=== PATIENT | female | born 1940 ===

== ENCOUNTER 2024-04-09 15:51 | Inpatient (IN) | payer MEDICARE, OTHER, SELFPAY ==
[2024-04-08 15:09] VITALS: BP 153/58
--- NOTE | 2024-04-08 17:00 | ED.GENMED ---
History of Present Illness
General
Chief Complaint: Cough
Time Seen by Provider: 04/08/24 17:00
History of Present Illness
History of Present Illness:
TIME OF INITIAL ENCOUNTER: 5 PM
HPI: I spoke to the daughter for the history. The patient was diagnosed with the flu about a week ago. She was placed on Tamiflu and also was on doxycycline. The doxycycline 'made her sick' and she only had a couple days worth. She had a
persistent cough and an outpatient x-ray at [facility] shows 'extensive multifocal pneumonia' and was sent here for further evaluation. Patient speaks Welsh.
EXAM:
GENERAL: Well appearing in no distress however she appears to be somewhat uncomfortable when she coughs
HEENT: Moist oral mucosa
CARDIOVASCULAR: No murmurs, normal heart rate, regular rhythm, No chest wall tenderness
PULMONARY: Minimal if any respiratory distress, somewhat decreased with faint rales at the bases
ABDOMEN: Soft with no peritoneal signs, no tenderness
NEUROLOGIC: Excellent strength all extremities, no coordination deficits
PSYCHIATRIC: Appropriate mental status, normal insight and judgement, communicating with family without difficulty
EXTREMITIES: Nontender, no edema, moves all extremities equally
SKIN: No rash, no lesions
NUMBER AND COMPLEXITY OF PROBLEMS ADDRESSED AT THE ENCOUNTER
� Chronic conditions affecting care: History of A-fib on Xarelto, PE, high blood pressure, diabetes
� Acute Exacerbation and/or Progression of Chronic Illness: This is an acute problem
� Differential Diagnosis includes: Viral pneumonia, bacterial pneumonia, viral syndrome, nonspecific cough, doubt PE as patient denies any significant shortness of breath and is already on Xarelto
AMOUNT AND/OR COMPLEXITY OF DATA TO BE REVIEWED AND ANALYZED
� I performed an independent evaluation of and my interpretation is:
EKG: A paced 60, IVCD
CT:
X-rays: I personally reviewed chest x-ray which does suggest right-sided opacities greater than left
Laboratory Studies: White count 3.6, hemoglobin 10.2, chemistries relatively unremarkable with exception of minimal transaminase elevation, troponin 0.012
Other:
� Review of other/old records: I reviewed the notes on the patient's daughters phone which indicates that yesterday's chest x-ray at [facility] showed 'extensive of bilateral pneumonia'
� Clinical information was obtained by an independent historian: I spoke to the daughter at bedside for history
� Prescriptions/Medications Considered but not given:
� Further testing considered but not performed:
RISK OF COMPLICATIONS AND/OR MORBIDITY OR MORTALITY OF PATIENT MANAGEMENT
� Social determinants of health affecting care: Lives at home
� Discussion with other providers: Hospitalist, Dr. Hadley, at 6:21 PM for admission
� Escalation of care including admission/observation vs risk of discharge considered: The patient appears comfortable and we talked about outpatient management however the daughter is concerned because she has already been on
doxycycline and azithromycin and chest x-ray as outpatient shows extensive pneumonia. Daughter tells me the primary wanted patient to be admitted for IV antibiotics. Will start Rocephin and continue azithromycin.
ANY OTHER UPDATES:
Past History
Past History
ED Past Medical History: Other (Paroxysmal atrial fib aortic stenosis hypertension diabetes)
Social History
Tobacco: Non-smoker
Alcohol: None
Family History
Family History: Negative Diabetes, Hypertension or CAD
Phy Exam
Physical Exam
Physical Exam:
See HPI
Course
Orders/Labs/Results
Orders:
Orders
04/08/24 15:13
EKG [Electrocardiogram (*1)] Urgent
Reason for Study: Chest Pain
04/08/24 15:14
EKG- Treatment ONCE
04/08/24 17:14
CR Chest - 2 Views Urgent
Comment:
Reason For Exam: flu 1wk ; cough; multifocal pneumonia on CXR Kishore
04/08/24 17:28
Complete Blood Count/With Diff Urgent
Comprehensive Metabolic Panel Urgent
Troponin I Urgent
04/08/24 17:33
Lactic Acid Q4H
Comment: CANCEL 2nd LACTIC ACID IF 1st LACTIC ACID IS LESS THAN 2
Blood Culture Q30M
AUDREY Source: Blood/Venous
Specimen Description:
04/08/24 17:43
Blood Culture Q30M
AUDREY Source: Blood/Venous
Specimen Description:
04/08/24 18:21
Azithromycin 500 mg/250 ml [Zithromax Infusion] 500 mg in 250 ml IV NOW
CefTRIAXone [Rocephin] 1,000 mg IV NOW STA
Abnormal Lab Results
04/08/24
17:28
WBC 3.6 L 10^3/uL
(4.8-10.8)
RBC 3.72 L 10^6/uL
(4.20-5.40)
Hgb 10.2 L g/dL
(12.0-16.0)
Hct 31.6 L %
(37.0-47.0)
MCHC 32.3 L g/dL
(33.0-37.0)
Absolute Lymphs (auto) 0.8 L 10^3/uL
(1.2-3.4)
BUN 26 H mg/dl
(7-17)
Glucose 129 H mg/dl
(70-99)
AST 47 H U/L
(14-36)
ALT 98 H U/L
(0-35)
04/08/24 17:28
04/08/24 17:28
Vital Signs
Initial and Last Documented VS:
Initial Vital Signs
Temp Pulse Resp BP Pulse Ox
36.6 C 62 16 153/58 97
04/08/24 15:09 04/08/24 15:09 04/08/24 15:09 04/08/24 15:09 04/08/24 15:09
Last Documented Vital Signs
Temp Pulse Resp BP Pulse Ox
36.6 C 62 16 131/57 95
04/08/24 15:09 04/08/24 18:00 04/08/24 15:09 04/08/24 17:30 04/08/24 17:45
*Critical Care Note
Total Time (30-74mins, 75-104mins- exclusive of procedures): Not Applicable
ED Attending Note
-
Portions of this chart may have been created with voice recognition software.� Occasional wrong word or��sound alike� substitutions may have occurred due to the inherent limitations of voice recognition software.
Discharge Plan
Departure
Patient Disposition: Admit
Date of Disposition: 04/08/24
Time of Disposition: 18:20
Presentation/result/management discussed w/ accepting MD/DO: Hospitalist
Discharge Problem:
Pneumonia
Prescriptions:
No Action
tizanidine 2 MG tablet
2 mg PO TID
diltiazem HCl 180 MG capsule,extended release 24hr
180 mg PO DAILY
folic acid 1 MG tablet
1 mg PO DAILY
rosuvastatin 10 MG tablet
10 mg PO QPM
sitagliptin phosphate [Januvia] 100 MG tablet
100 mg PO DAILY
dexlansoprazole [Kapidex] 60 MG capsule,biphase delayed releas
60 mg PO DAILY
rivaroxaban [Xarelto] 20 MG tablet
20 mg PO QPM
linaclotide [Linzess] 290 MCG capsule
290 mcg PO DAILY
amiodarone [Pacerone] 200 MG tablet
200 mg PO BID Qty: 60 1RF
Rx Instructions:
200 mg bid for 14 days and 200 gm daily
Referrals:
Matty Chavez MD [Family Provider] -
Interventions
Interventions:
*Risk Screen - Suicide Last Done: 04/08/24 15:09
*General Assessment Last Done: 04/08/24 17:46
*Neglect/Abuse Screening Last Done: 04/08/24 15:09
*ED COVID-19 Vaccine History Last Done: 04/08/24 17:46
ED- Pulmonary Assessment Last Done: 04/08/24 17:46
Discharge Date and Time
Print Language: SINGAPOREAN
[2024-04-08 17:30] VITALS: BP 131/57
[2024-04-08 17:52] LABS: Lactic Acid 0.9 mmol/L (0.7-2.0)
[2024-04-08 17:55] LABS: ALT (SGPT) 98 U/L (0-35); AST (SGOT) 47 U/L (14-36); Albumin 3.9 g/dl (3.5-5.0); Alkaline Phosphatase 79 U/L (38-126); Blood Urea Nitrogen 26 mg/dl (7-17); Calcium 9.1 mg/dl (8.4-10.2); Carbon Dioxide 27 mmol/L (22-30); Chloride 102 mmol/L (98-107); Glucose 129 mg/dl (70-99); Potassium 4.9 mmol/L (3.5-5.1); Sodium 137 mmol/L (135-145); Total Bilirubin 0.5 mg/dl (0.2-1.3); Total Protein 6.4 g/dl (6.3-8.2)
[2024-04-08 17:56] LABS: Hematocrit 31.6 % (37.0-47.0); Hemoglobin 10.2 g/dL (12.0-16.0); Mean Corp Hgb Conc. 32.3 g/dL (33.0-37.0); Mean Corpuscular Hgb 27.4 pg (27.0-31.0); Mean Corpuscular Volume 84.9 fL (81.0-99.0); Mean Platelet Volume 9.4 fL (7.4-10.4); Platelet Count 279 10^3/uL (130-400); Red Blood Cell Count 3.72 10^6/uL (4.20-5.40); Red Cell Dist. Width 14.2 % (11.5-14.5); White Blood Cell Count 3.6 10^3/uL (4.8-10.8)
[2024-04-08 18:00] LABS: Troponin I 0.012 ng/ml
[2024-04-08 18:01] LABS: % Immature Granulocytes 0.3 % (0-0.5); % Lymphocytes 23.2 % (20.5-51.1); % Monocytes 5.5 % (1.7-9.3); Absolute Lymphocytes 0.8 10^3/uL (1.2-3.4); Absolute Monocytes 0.2 10^3/uL (0.1-0.6); Absolute Neutrophils 2.6 10^3/uL (1.4-6.5); Nucleated Red Blood Cells % 0 %
[2024-04-08 18:18] VITALS: BP 128/49
[2024-04-08] MEDS: ROCEPHIN 1000 MG IV (18:26)
[2024-04-08] MEDS: ZITHROMAX INFUSION 250 IV (18:26)
[2024-04-08 19:00] VITALS: BP 131/50
--- NOTE | 2024-04-08 19:18 | HPS.HSE ---
Family Physician
-
Family Physician: Matty Chavez
Chief Complaint
-
pneumonia
History of Present Illness
Patient is a 83-year-old female with past medical history significant for benign hypertension, paroxysmal atrial fibrillation, and hyperlipidemia who presented to [place] ED for evaluation of new diagnosed pneumonia. History obtained from patient
daughter who is at bedside. Patient tested positive for influenza a week ago and was placed on Tamiflu and doxycycline. Patient did not tolerate doxycycline and gave her nausea and vomiting so she did not complete course. She did finish Tamiflu.
Patient spoke with primary provider for continued productive cough. Primary sent for out patient x-ray that showed pneumonia and then primary recommended evaluation at ED. Patient had fever and chills when started with flu but none in last 48 hours.
Denies any shortness of breath, chest pain, constipation, diarrhea or urinary symptoms.
Medical History
Past Medical History
Past Medical History: Reports Other
Additional Past Medical History:
benign hypertension
paroxysmal atrial fibrillation
hyperlipidemia
Past Surgical History: Reports Other
Additional Past Surgical History:
aortic valve replacement
pacemaker
Social History
Tobacco: Non-smoker
Alcohol: None
Drug: None
Living: Alone
Family History
Family History: Not pertinent
Allergies / Home Medications
Allergies reflects when Allergies were last updated in [facility].
Home Medications with original date entered in [facility]
Allergy/Medication List:
Allergies
Allergy/AdvReac Type Severity Reaction Status Date / Time
latex Allergy Unknown Verified 04/08/24 15:09
Home Medications
linaclotide 290 mcg capsule (Linzess) 290 mcg PO HS Gastrointestinal issue 12/09/20
rivaroxaban 20 mg tablet (Xarelto) 20 mg PO QPM Blood clot prevention/tx 12/09/20
rosuvastatin 10 mg tablet 10 mg PO DAILY High cholesterol 12/09/20
sitagliptin phosphate 100 mg tablet (Januvia) 100 mg PO DAILY Diabetes 12/09/20
amiodarone 200 mg tablet (Pacerone) 200 mg PO BID #60 tabs 12/14/20
metoprolol tartrate 25 mg tablet 25 mg PO TID 04/08/24
verapamil 300 mg capsule [address]hr pellet CT,ext.release 300 mg PO HS 04/08/24
Review of Systems
-
History Source: Patient and Family
Constitutional: Reports Fever, Fatigue and Sleep Disturbance
EENT: Reports No Symptoms
Respiratory: Reports Cough
Cardiac: Reports No Symptoms
Abdomen/GI: Reports Nausea and Vomiting
: Reports No Symptoms
Musculoskeletal: Reports No Symptoms
Skin: Reports No Symptoms
Neurological: Reports No Symptoms
Endocrine: Reports No Symptoms
Hematologic/Lymphatic: Reports No Symptoms
Psych: Reports No Symptoms
Physical Exam
Vital Signs
Vital Signs
Temp Pulse Resp BP Pulse Ox
98 F 71 16 131/50 96
04/08/24 15:09 04/08/24 19:02 04/08/24 15:09 04/08/24 19:00 04/08/24 19:00
Physical Exam
General: Well Developed, Well Nourished, No Apparent Distress, Comfortable, Conversant and Morbidly Obese
HEENT: NormoCephalic, Moist mucous membranes, Atraumatic, [place] Conjunctivae, Nose Appears Normal and Ears Appear Normal
Respiratory: Clear, Crackles, Non Labored Respirations and Decreased Breath Sounds
Cardiac: S1/S2 and Regular Rhythm; No Murmur, Rub or Gallop
Breast: Deferred by me
GI: Soft, Non Tender, Non Distended and Normal Bowel Sounds; No Organomegaly
Rectal: Deferred by Provider
Genito-urinary: Deferred by me
Musculoskeletal: No Clubbing, No Cyanosis and No Edema
Skin: No Rash
Neuro: Awake, Alert, AO x 3 and Nonfocal/grossly intact
Hematologic/Lymphatic: No Lymphadenopathy
Psych: Calm
Laboratory Results
-
04/08/24 17:28
04/08/24 17:28
Laboratory Results
Lactic Acid Cancelled 04/08/24 21:45
Total Bilirubin 0.5 mg/dl (0.2-1.3) 04/08/24 17:
AST 47 U/L (14-36) H 04/08/24 17:28
ALT 98 U/L (0-35) H 04/08/24 17:28
Alkaline Phosphatase 79 U/L (38-126) 04/08/24 17:
Troponin I 0.012 ng/ml 04/08/24 17:28
Data Reviewed
-
Diagnostic Radiology: Report Reviewed by me (CXR: Bilateral pneumonia as described above. New)
Medical Tests (Nuc Med, Echo, EKG etc): Report Reviewed by me (EKG: Atrial-paced rhythm with prolonged AV conduction LEFT AXIS DEVIATION LEFT BUNDLE BRANCH BLOCK)
Lab Data: Labs Reviewed by me
Impression/Plan
-
IMPRESSION/PLAN:
#pneumonia
CXR: Bilateral pneumonia as described above. New
- Admit to med/surg
- IV Rocephin and azithromycin
- supportive care
#benign hypertension
- continue verapamil
#paroxysmal atrial fibrillation
- continue amiodarone, metoprolol and Xarelto
#hyperlipidemia
- continue rosuvastatin
#diabetes
- continue Januvia
Code status: full code
DVT Prophylaxis: Lovenox sq
--- NOTE | 2024-04-08 20:22 | W.PN.UPDATE ---
Update Note
Progress Note Update
Patient seen in conjunction with CRIMINAL RECORDS TECHNICIAN. I agree with the findings and physical. I concur with the assessment and plan.
This is a 83-year-old female with past medical history significant for tal-rxmzpuj-iukznbnxz diabetes, proximal atrial fibrillation, hypertension and IBS who presents to the emergency department with ongoing cough and shortness of breath. Patient
had episode of fluid about 1 week ago with cough fevers and chills. She continued to have cough and she discussed this with a physician. She had an x-ray which showed pneumonia and patient was referred to the emergency department.
So far she has been afebrile and not requiring oxygen. She is reporting productive cough. She does not have any chest pain.
In the emergency department she was afebrile, blood pressure was 130/50 with a pulse of 71 satting 96% on room air. Chest x-ray shows bilateral lower lobe infiltrates which were extensive. White count was 3.6 hemoglobin 10.2 with a platelet count
of 270. Electrolytes BUN/creatinine were completely normal.
Picture consistent with post influenza or pneumonia.
Will admit to MedSurg observation, will start her on IV ceftriaxone and azithromycin. Supportive measures. She has been otherwise stable in terms of hemodynamics oxygen and labs no changes in our other medications required.
Observe for 24 hours and if stable she can be discharged on oral antibiotics.
CODE STATUS full code
DVT prophylaxis already on Xarelto
[2024-04-08 21:13] VITALS: BP 136/62; BMI 35.6
[2024-04-08] MEDS: LOPRESSOR 25 MG PO (21:31)
[2024-04-08] MEDS: LINZESS 290 MCG PO (22:31)
[2024-04-08] MEDS: XARELTO 15 MG PO (22:32)
[2024-04-08 22:44] LABS: Glucose - Point of Care 109 mg/dl (70-99)
[2024-04-08 23:03] VITALS: BMI 35.6
--- NOTE | 2024-04-08 23:58 | PTCARENOTE ---
Patient arrived to [facility] as an admission from emergency department. Patient was oriented to room and call light. Per patient, she takes 15 mg of Xarelto, and not the 20 mg of Xarelto that was originally ordered. Nurse practitioner made aware;
medication ordered in correct dose. See MAR for administration. Per patient, she was informed by ER nurse that she would be 'getting a second bag of antibiotics' once she arrived to [facility]. Per MAR, patient received her dose of Rocephin and
Azithromycin in the ED. Patient expressed concern that she was not getting an adequate dose of her antibiotics. Nurse practitioner [place] at bedside and explained medication dosing and treatment plan to the patient. RN and DIRECTOR RADIO explained to patient
that her next dose of antibiotics are due 24 hours after her 1st dose. Patient is agreeable to plan of care and all questions answered. Call hernandez within reach.
[2024-04-09 06:00] VITALS: BMI 35.4
[2024-04-09 07:00] VITALS: BP 156/67
[2024-04-09] MEDS: PACERONE PO (08:10)
[2024-04-09] MEDS: LOPRESSOR PO (08:11)
[2024-04-09 08:23] LABS: Glucose - Point of Care 84 mg/dl (70-99)
[2024-04-09 08:49] LABS: Hematocrit 32.5 % (37.0-47.0); Hemoglobin 10.6 g/dL (12.0-16.0); Mean Corp Hgb Conc. 32.6 g/dL (33.0-37.0); Mean Corpuscular Hgb 28.3 pg (27.0-31.0); Mean Corpuscular Volume 86.9 fL (81.0-99.0); Mean Platelet Volume 9.9 fL (7.4-10.4); Platelet Count 326 10^3/uL (130-400); Red Blood Cell Count 3.74 10^6/uL (4.20-5.40); Red Cell Dist. Width 14.2 % (11.5-14.5); White Blood Cell Count 5.4 10^3/uL (4.8-10.8)
[2024-04-09 09:08] LABS: Blood Urea Nitrogen 23 mg/dl (7-17); Calcium 9.3 mg/dl (8.4-10.2); Carbon Dioxide 31 mmol/L (22-30); Chloride 104 mmol/L (98-107); Estimated Creatinine Clearance 38 ml/min; Glucose 78 mg/dl (70-99); Potassium 3.9 mmol/L (3.5-5.1); Sodium 141 mmol/L (135-145); eGFR 49.86
[2024-04-09 11:06] VITALS: BP 118/60; PULSE 79; O2SAT 95
[2024-04-09 11:10] VITALS: O2SAT 95
[2024-04-09 11:31] LABS: Glucose - Point of Care 91 mg/dl (70-99)
[2024-04-09] MEDS: TYLENOL 650 MG PO (11:36)
[2024-04-09] MEDS: PACERONE 200 MG PO ×2 (11:36→21:56)
[2024-04-09] MEDS: LOPRESSOR 25 MG PO ×3 (11:36→21:56)
[2024-04-09 12:56] LABS: NT-proBNP 2780 pg/ml
[2024-04-09 13:11] LABS: Procalcitonin < 0.05 ng/ml (0.0-0.25)
--- NOTE | 2024-04-09 14:46 | CON.PUL ---
Consultation
Consultation Request
Date/Time Consultation Requested: 04/09
Date/Time Consultation Performed: 04/09
Reason for Consultation: Abnormal imaging
Medical History
-
History of Present Illness:
History obtained from the patient and reviewing the chart. Outreach Director line was used to help with acquiring history. 83-year-old female with history of atrial fibrillation, hypertension who was found to have influenza about 1 week ago completed a
course of Tamiflu, doxycycline. She was unable to finish the course of antibiotic due to intolerance. She was having fevers according to the patient 40 �C. For this reason she brought her self to [facility]. Upon arrival, temperature
36.6 �C, pulse 62, breathing at 16, blood pressure 153/58, 97%. Chest x-ray suggested pneumonia. She was given IV Rocephin and azithromycin. Presently she is feeling well. She has a mild cough, but denies hemoptysis, chest pain, falls,
dysphagia, choking, diarrhea. She lives alone, ambulates. She is a non-smoker
.
PMH: History of pneumonias in the past, history of pulm nodule being followed details unclear, hypertension, atrial fibrillation, hyperlipidemia, diabetes. She also has a history of pulm embolism many years ago following cholecystectomy
Past Medical History
Past Medical History: None (See above)
Past Surgical History: None (See above)
Social History
Tobacco: Non-smoker
Alcohol: Occasional
Drug: None
Living: Alone
Family History
Family History: Reviewed & Not Pertinent
Allergies / Home Medications
Allergies
Allergy/AdvReac Type Severity Reaction Status Date / Time
latex Allergy Unknown Verified 04/08/24 15:09
Home Medications
�Medication �Instructions �Recorded �Confirmed �Last Taken �Type
linaclotide 290 mcg capsule 290 mcg PO HS Gastrointestinal 12/09/20 04/08/24 04/07/24 History
(Linzess) issue
rosuvastatin 10 mg tablet 10 mg PO DAILY High cholesterol 12/09/20 04/08/24 04/08/24 History
sitagliptin phosphate 100 mg 100 mg PO DAILY Diabetes 12/09/20 04/08/24 04/08/24 History
tablet (Januvia)
amiodarone 200 mg tablet (Pacerone) 200 mg PO BID #60 tabs 12/14/20 04/08/24 04/08/24 Rx
metoprolol tartrate 25 mg tablet 25 mg PO TID 04/08/24 04/08/24 04/08/24 History
rivaroxaban 15 mg tablet (Xarelto) 15 mg PO QPM 04/08/24 04/08/24 Unknown History
verapamil 300 mg capsule 24hr 300 mg PO HS 04/08/24 04/08/24 04/08/[address],ext.release
Review of Systems
-
All other systems: Negative unless noted
Vitals / Labs / Diagnostic Testing
Vital Signs
Temp Pulse Resp BP Pulse Ox
97.6 F 66 19 176/72 95
04/09/24 07:00 04/09/24 11:36 04/09/24 07:00 04/09/24 11:36 04/09/24 07:00
Lab Data
04/09/24 08:12
04/09/24 08:12
Diagnostic Testing:
Physical Exam
-
HEENT: Normocephalic and Anicteric
Cardiovascular: S1/S2, Irregular Rhythm, Murmur (n), Rub (n), Peripheral Edema (tr) and Calf Tenderness (n)
Respiratory: Wheeze (n), Rales (n), Rhonchi (few) and Non-Labored Respirations
GI: Non Distended and Non Tender
Neurology: Awake, Alert and No Motor Deficits
Skin: Good Color
General: Comfortable
Assessment
-
83-year-old female with recent influenza 1 week ago, did not complete course of antibiotics but did complete antiviral therapy, presents with persistent fevers, cough with chest x-ray suggestive of multifocal pneumonia
Bilateral infiltrates, right greater than left
Suspect inflammatory/infectious pneumonitis
Rhonchi on exam
Recent influenza, status post Tamiflu 1 week ago
Conditions present prior to admission
History of pulm nodule, followed by CT chest
Stable per patient
History of atrial fibrillation on anticoagulation
Amiodarone therapy noted
Pacemaker
History of aortic stenosis, status post TAVR
Hypertension/hyperlipidemia
Diabetes
History of pulmonary embolism following cholecystectomy many years ago
History of cholecystectomy
Plan/recommendations
At this time, patient appears to be nontoxic. She does have some rhonchi on exam. Suspect this is postinfectious inflammatory changes. Cannot rule out secondary infection
Patient states fevers have resolved
Moving forward
Agree with empiric antibiotic for presumed community-acquired pneumonia
She appears nontoxic
She states she lives independently and ambulates and takes care of things without difficulty
She relays history of pulm nodule which has been followed, details unclear
She relates distant history of pulmonary embolism following cholecystectomy
Would obtain chest x-ray in about 4 to 6 weeks to confirm resolution of pneumonia
Would consider follow-up with primary and/or pulmonary with regards to eventual follow-up CT chest
Patient asking why not CT chest. Discussed how it can take up to 3 months for pneumonia to resolve radiographically
Reviewed with patient through diplomatic interpreter
All questions asked
Reviewed with primary service who will review with daughter and patient (all [place] speaking)
Pulmonary information left in chart
Will follow
[2024-04-09 15:00] VITALS: BP 136/59
[2024-04-09] MEDS: LASIX 40 MG IV (15:42)
--- NOTE | 2024-04-09 15:53 | W.PN.HOSP.TC ---
Today's Communication/Plan
-
Continue antibiotics
IV Lasix.
Pulmonology evaluation
Assessment / Plan
Assessment / Plan
Impression:
Multifocal pneumonia
Recent influenza.
Persistent nonproductive cough
Conditions prior to admission:
Chronic atrial fibrillation
Tachybradycardia syndrome status post pacemaker.
Anticoagulation with Xarelto
Severe aortic stenosis status post TAVR.
Essential hypertension.
Dyslipidemia
Type 2 diabetes.
Chronic normocytic anemia with history of iron deficiency.
Obesity with BMI of 35
Plan:
Multifocal infiltrates on chest x-ray
Recent influenza completed course of Tamiflu as outpatient
Reported administration of doxycycline to 3 doses prior to admission with intolerance of nausea
Afebrile with stable respiratory status upon presentation.
Chest x-ray with bilateral right greater than left multifocal infiltrates.
WBC 5.4.
Normal procalcitonin
Blood cultures pending.
Presentation does not consistent with bacterial pneumonia. Suspect resolving viral pneumonia reflecting on current imaging. Less likely interstitial lung disease, although could not exclude specially with chronic amiodarone therapy.
No evidence for volume overload.
Patient states compliance with diuretics at home.
Prostate check BNP lower than baseline.
Discussed with pulmonology.
Plan is to complete 5-7 days of antibiotic course.
Follow-up with chest x-ray as outpatient, if persistent infiltrate, pursue additional imaging with CT scan
Outpatient pulmonology follow-up
Chronic atrial fibrillation
Tachybradycardia syndrome status post pacemaker
Continue rate control with amiodarone, metoprolol.
Continue anticoagulation with Xarelto.
Severe aortic stenosis.
Status post TAVR
Recent echo with functioning TAVR and preserved LVEF
Volume status compensated
Provided additional dose of IV Lasix.
Hypertension
Remains on verapamil and metoprolol
Type 2 diabetes.
Update hemoglobin A1c.
Continue Januvia
Dyslipidemia on statin.
Anticipated Discharge: 24 - 48 hours
Subjective/Interval History
-
Date of Service: April 09, 2024
Objective Data
-
Labs:
Laboratory Results
04/09/24
08:12
WBC 5.4
Hgb 10.6 L
Hct 32.5 L
Plt Count 326
Sodium 141
Potassium 3.9
Chloride 104
Carbon Dioxide 31 H
BUN 23 H
Creatinine 1.1 H
Glucose 78
Calcium 9.3
Vital Signs:
Vital Signs
Temp Pulse Resp BP Pulse Ox
97.7 F 61 18 136/59 95
04/09/24 15:00 04/09/24 15:42 04/09/24 15:00 04/09/24 15:42 04/09/24 15:00
I&O
04/08/24 04/09/24 04/10/24
06:59 06:59 06:59
Intake Total 240 / 240 720 / 720
Balance 240 / 240 720 / 720
Physical Exam
-
General: Well Developed and No Apparent Distress
HEENT: Normocephalic, Atraumatic and Moist Mucous Membranes
Respiratory: Rhonchi
Cardiac: Regular Rhythm and S1/S2; Negative Murmur, Rub or Gallop
GI: Soft, Nontender, Nondistended and Normal Bowel Sounds; Negative Organomegaly
Rectal: Deferred by Provider
Musculoskeletal: No Clubbing, No Cyanosis and No Edema
Skin: Negative Rash
Neuro: Nonfocal/Grossly Intact
[2024-04-09 16:50] LABS: COVID-19 Antigen Negative (Negative)
[2024-04-09 17:13] LABS: Glucose - Point of Care 107 mg/dl (70-99)
[2024-04-09] MEDS: STERILE WATER FOR INJECTION 10 ML IV (17:18)
[2024-04-09] MEDS: ROCEPHIN 1000 MG IV (17:18)
[2024-04-09] MEDS: ZITHROMAX INFUSION 250 IV (17:20)
[2024-04-09] MEDS: XARELTO 15 MG PO (17:59)
[2024-04-09 21:30] LABS: Glucose - Point of Care 108 mg/dl (70-99)
[2024-04-09 21:56] VITALS: BP 151/55
[2024-04-09] MEDS: LINZESS 290 MCG PO (21:57)
[2024-04-09 23:00] VITALS: BP 142/61
[2024-04-10 06:00] VITALS: BMI 35.0
[2024-04-10 07:22] VITALS: BP 157/65
[2024-04-10 07:39] LABS: Glucose - Point of Care 97 mg/dl (70-99)
[2024-04-10] MEDS: LOPRESSOR 25 MG PO (07:47)
[2024-04-10] MEDS: PACERONE 200 MG PO (07:47)
--- NOTE | 2024-04-10 10:16 | W.PN.PUL3 ---
Today's Communication / Plan
-
Continue antibiotics for 5 to 7 days
manager user interface to set up home nebulizer, albuterol as needed (daughter request)
Chest x-ray in 4 to 6 weeks with pulmonary follow-up at that time
Disposition efforts
Assessment
-
83-year-old female with recent influenza 1 week ago, did not complete course of antibiotics but did complete antiviral therapy, presents with persistent fevers, cough with chest x-ray suggestive of multifocal pneumonia
Bilateral infiltrates, right greater than left
Suspect inflammatory/infectious pneumonitis
Rhonchi on exam
Recent influenza, status post Tamiflu 1 week ago
Conditions present prior to admission
History of pulm nodule, followed by CT chest
Stable per patient
History of atrial fibrillation on anticoagulation
Amiodarone therapy noted
Pacemaker
History of aortic stenosis, status post TAVR
Hypertension/hyperlipidemia
Diabetes
History of pulmonary embolism following cholecystectomy many years ago
History of cholecystectomy
Plan/recommendations
At this time, patient appears to be nontoxic.
Chest exam may be slightly improved, mild wheezing rhonchi with cough
Suspect this is postinfectious inflammatory changes. Cannot rule out secondary infection
Patient states fevers have resolved
Remains on antibiotics
Moving forward
Agree with empiric antibiotic for presumed community-acquired pneumonia
She appears nontoxic
She states she lives independently and ambulates and takes care of things without difficulty
Consider transition to oral antibiotic, would complete 5 to 7-day total
She relays history of pulm nodule which has been followed, details unclear
She relates distant history of pulmonary embolism following cholecystectomy
Would obtain chest x-ray in about 4 to 6 weeks to confirm resolution of pneumonia
Would consider follow-up with primary and/or pulmonary with regards to eventual follow-up CT chest
Patient asking why not CT chest. Discussed how it can take up to 3 months for pneumonia to resolve radiographically
Patient is requesting a nebulizer at home. We will set up. Recommend albuterol as needed via nebulizer
Reviewed with patient through daughter by phone, who acted as coach tour driver as well
All questions asked
Reviewed with primary service who will review with daughter and patient (all [place] speaking)
Disposition efforts
Subjective Data
-
Date of Service:
Date of Service: April 10, 2024
Subjective:
Patient sitting in chair. Daughter on the phone, acted as coach tour driver. She has mild cough but otherwise denies chest pain, nausea, abdominal pain
Objective Data
Data Reviewed
Vital Signs / I&O / Oxygen:
Vital Signs
Temp Pulse Resp BP Pulse Ox
98.4 F 63 14 157/65 96
04/10/24 07:22 04/10/24 07:47 04/10/24 07:22 04/10/24 07:47 04/10/24 07:22
Intake and Output
04/09/24 04/10/24 04/11/24
06:59 06:59 06:59
Intake Total 240 / 240 1200 / 1200
Balance 240 / 240 1200 / 1200
SaO2 96
Physical Exam
General: Comfortable
HEENT: Normocephalic and Anicteric
Cardiovascular: S1-S2, Regular Rhythm, Murmur (n), Rub (n) and Peripheral Edema (n)
Respiratory: Wheeze (Mild with cough), Crackles (n), Rhonchi (Mild with cough), Non-Labored Respirations and Stridor (n)
GI: Soft, Non Distended and Non Tender
Neurology: Awake and Alert
Skin: Cyanosis (n), Jaundice (n) and Rash (n)
Labs/Micro/Reports
Lab Data
04/09/24 08:12
04/09/24 08:12
Microbiology
04/08/24 17:43 Blood/Venous Blood Culture - Preliminary
No Growth in 24 hours- Final report to follow
04/08/24 17:33 Blood/Venous Blood Culture - Preliminary
No Growth in 24 hours- Final report to follow
04/09/24 16:25 Urine Legionella Urinary Antigen - Final
Negative for Legionella pneumophila Serogroup 1 antigen.
A negative result does not rule out the possiblity of
Legionella infection due to other serogroups or species of
Legionella. Clinical correlation is recommended.
04/09/24 16:25 Urine Streptococcus pneumoniae Antigen (M - Final
Negative for Streptococcus pneumoniae antigen.
A negative result does not exclude infection with
Streptococcus pneumoniae. Clinical correlation is
recommended.
--- NOTE | 2024-04-10 11:22 | W.DS.TRANS ---
DC Summary - Front Desk Attendant
-
Discharge Instructions:
Sleep Apnea Risk Low
Discharge Diagnosis/Procedures Pneumonia
Diet Diabetic, Carb Controlled
Instructions:
Stand-Alone Forms:
Changes to Home Medications: Yes
Discharge Medications:
DC Medications w/original date entered in [employer]
linaclotide 290 mcg capsule (Linzess) 290 mcg PO HS Gastrointestinal issue 12/09/20
rosuvastatin 10 mg tablet 10 mg PO DAILY High cholesterol 12/09/20
sitagliptin phosphate 100 mg tablet (Januvia) 100 mg PO DAILY Diabetes 12/09/20
amiodarone 200 mg tablet (Pacerone) 200 mg PO BID #60 tabs 12/14/20
metoprolol tartrate 25 mg tablet 25 mg PO TID Blood Pressure 04/08/24
rivaroxaban 15 mg tablet (Xarelto) 15 mg PO QPM Blood Clot Prevention/Tx 04/08/24
verapamil 300 mg capsule [address]hr pellet CT,ext.release 300 mg PO HS Blood Pressure 04/08/24
albuterol sulfate 0.63 mg/3 mL solution for nebulization 0.63 mg (3 mL) inhalation QID PRN shortness of breath or wheezing #90 mL 04/10/24
azithromycin 500 mg tablet (Zithromax) 500 mg PO DAILY 3 days #3 tabs 04/10/24
cefuroxime axetil 500 mg tablet 500 mg PO BID #10 tabs 04/10/24
furosemide 40 mg tablet 40 mg PO DAILY #30 tabs 04/10/24
potassium chloride 20 mEq tablet,extended release(part/cryst) 20 meq PO DAILY #30 tabs 04/10/24
Home Medication Changes
completing antibiotics course
Pending Results: No
--- NOTE | 2024-04-10 11:22 | W.PN.HOSP.TC ---
Today's Communication/Plan
-
discharge
Assessment / Plan
Assessment / Plan
Impression:
Multifocal pneumonia
Recent influenza.
Persistent nonproductive cough
Conditions prior to admission:
Chronic atrial fibrillation
Tachybradycardia syndrome status post pacemaker.
Anticoagulation with Xarelto
Severe aortic stenosis status post TAVR.
Essential hypertension.
Dyslipidemia
Type 2 diabetes.
Chronic normocytic anemia with history of iron deficiency.
Obesity with BMI of 35
Plan:
Multifocal infiltrates on chest x-ray
Recent influenza completed course of Tamiflu as outpatient
Reported administration of doxycycline to 3 doses prior to admission with intolerance of nausea
Afebrile with stable respiratory status upon presentation.
Chest x-ray with bilateral right greater than left multifocal infiltrates.
WBC 5.4.
Normal procalcitonin
Blood cultures pending.
Presentation does not consistent with bacterial pneumonia. Suspect resolving viral pneumonia reflecting on current imaging. Less likely interstitial lung disease, although could not exclude specially with chronic amiodarone therapy. Transition to
oral antibiotics for additional 5 days.
No evidence for volume overload.
Patient states compliance with diuretics at home.
Prostate check BNP lower than baseline.
Discussed with pulmonology.
Plan is to complete 5-7 days of antibiotic course.
Follow-up with chest x-ray as outpatient, if persistent infiltrate, pursue additional imaging with CT scan
Outpatient pulmonology follow-up
Patient needs a nebulizer delivering short acting bronchodilator due to viral bronchopneumonia and prestent bronchospasm.
Chronic atrial fibrillation
Tachybradycardia syndrome status post pacemaker
Continue rate control with amiodarone, metoprolol.
Continue anticoagulation with Xarelto.
Severe aortic stenosis.
Status post TAVR
Recent echo with functioning TAVR and preserved LVEF
Volume status compensated
Provided additional dose of IV Lasix with 2LB diuresis overnight
Hypertension
Remains on verapamil and metoprolol
Type 2 diabetes.
Update hemoglobin A1c. 6.0
Continue Januvia
Dyslipidemia on statin.
Anticipated Discharge: Today
Subjective/Interval History
-
Date of Service: April 10, 2024
Objective Data
-
Vital Signs:
Vital Signs
Temp Pulse Resp BP Pulse Ox
98.4 F 63 14 157/65 96
04/10/24 07:22 04/10/24 07:47 04/10/24 07:22 04/10/24 07:47 04/10/24 07:22
I&O
04/09/24 04/10/24 04/11/24
06:59 06:59 06:59
Intake Total 240 / 240 1200 / 1200
Balance 240 / 240 1200 / 1200
Physical Exam
-
General: Well Developed and No Apparent Distress
HEENT: Normocephalic, Atraumatic and Moist Mucous Membranes
Respiratory: Rhonchi
Cardiac: Regular Rhythm and S1/S2; Negative Murmur, Rub or Gallop
GI: Soft, Nontender, Nondistended and Normal Bowel Sounds; Negative Organomegaly
Rectal: Deferred by Provider
Musculoskeletal: No Clubbing, No Cyanosis and No Edema
Skin: Negative Rash
Neuro: Nonfocal/Grossly Intact
[2024-04-10 12:27] VITALS: BP 132/52
--- NOTE | 2024-04-10 13:41 | CM ---
engineering manager electronics reviewed patient's chart and met with patient and patient lives alone in a one story house no steps to enter, patient is independent with adl's and uses a cane or walker with ambulation, patient needs nebulizer per physician, case
human services manager reached out to [facility] [employer] [phone], , and faxed referral, update provided to Elke.
PCP: Matty Chavez
Pharmacy: [facility]
Plan; Home with support from daughter Elke.
== END 2024-04-10 14:28 | disposition home or self-care (01) | DRG 194 ==
LOC: 4 WEST ACU 15:51
PROVIDERS: Emergency Medicine; Nurse Practitioner Family; ADMITTING PHYSICIAN Internal Medicine; ATTENDING PHYSICIAN Internal Medicine; CONSULT PHYSICIAN Internal Medicine Critical Care Medicine; EMERGENCY PHYSICIAN Emergency Medicine; FAMILY PHYSICIAN Internal Medicine
DX: J18.9 Pneumonia, unspecified organism (principal); I48.20 Chronic atrial fibrillation, unspecified; I50.32 Chronic diastolic (congestive) heart failure; E11.9 Type 2 diabetes mellitus without complications; I11.0 Hypertensive heart disease with heart failure; I49.5 Sick sinus syndrome; I35.0 Nonrheumatic aortic (valve) stenosis; E78.5 Hyperlipidemia, unspecified; E66.9 Obesity, unspecified; D64.9 Anemia, unspecified; Z68.35 Body mass index [BMI] 35.0-35.9, adult; Z79.01 Long term (current) use of anticoagulants; Z79.899 Other long term (current) drug therapy; Z95.2 Presence of prosthetic heart valve; Z95.0 Presence of cardiac pacemaker; Z86.711 Personal history of pulmonary embolism; Z20.822 Contact with and (suspected) exposure to COVID-19
CPT/HCPCS: 71046; 80048; 80053; 82962; 83036; 83605; 83880; 84145; 84484; 85025; 85027; 87040; 87449; 87811; 87899; 93005; 96374; 96375; 97162; 97166; 99285